=== PATIENT | male | born 1970 | race Caucasian/White ===

== ENCOUNTER 2024-10-19 06:33 | Emergency (ER) | payer BC, SELFPAY ==
[2024-10-19 06:34] VITALS: BMI 32.1
[2024-10-19 06:45] VITALS: BP 128/81; PULSE 74; RESP 17; TEMP 36.4; O2SAT 98
--- NOTE | 2024-10-19 06:47 | XR_ITS ---
Examination: CT brain head without contrast. 2-D sagittal coronal reconstructions Date and time of exam:October 19, 2023 0710 hrs. Patient fell down stairs today with injury to the head, head pain CTDI: vol (mGy):56.4 DLP: (mGycm):1193 Technique: Multiple CT axial sections of the brain have been obtained, 5 mm slice thickness. Contrast has not been administered. 2-D sagittal, coronal reconstructions have been obtained Low dose protocols were performed. One or more of the following dose reduction techniques were used; automated exposure control, adjustment of the mA and/or KV according to patient size, use of iterative reconstruction technique. Findings: No significant ventricular enlargement. Intra-axial or extra-axial hemorrhage density is not seen. No mass effect or midline shift Basal cisterns are not remarkable. Fourth ventricle is midline. Cranial vault intact. Significant left paranasal sinus disease Impression: Negative for acute hemorrhage, mass effect or midline shift
--- NOTE | 2024-10-19 06:47 | XR_ITS ---
Examination: CT right hip pelvis, without contrast. 2-D sagittal reconstructions. 2-D coronal reconstructions. 3-D reconstructions. Date and time of exam:October 19, 2024 0712 hrs. Indications: Patient fell today with injury to the right hip, right hip pain CTDI: vol (mGy):8.66 DLP: (mGycm):309 Technique: Multiple 1.25 mm axial sections of the pelvis right hip have been obtained. 2-D sagittal and coronal reconstructions have been obtained. 3-D reconstructions have been obtained. Low dose protocols were performed. One or more of the following dose reduction techniques were used; automated exposure control, adjustment of the mA and/or KV according to patient size, use of iterative reconstruction technique. Findings: Mild osteopenia. Sacral segments intact Iliac bones acetabular regions anterior rami intact No right hip fracture or hip dislocation Left hip intact Normal appendix No pelvic hematoma Urinary bladder intact Hematoma in the gluteus shauna muscle posterior to the right hip measuring 5.4 x 4.0 cm axial image 118 Impression: Soft tissue hematoma posterior to the right hip No acute hip or pelvic fracture
[2024-10-19] MEDS: HYDROcodone/APAP 5/325 TABLET 1 TAB PO (06:53)
--- NOTE | 2024-10-19 08:23 | PD.EDFALL ---
ED Fall Injury RME/HPI General Chief Complaint: Fall Stated Complaint: FELL, RIGHT BUTTOCK/HIP AREA PAIN Time Seen by Provider: 10/19/24 06:39 Arrival date/time: 10/19/24 06:33 54-year-old male presents emergency department complains of pain to the right buttock as well as pain to the back of his head after a ground-level fall today Limitations: no limitations Related Data Previous Rx's ?Medication ?Instructions ?Recorded albuterol sulfate 90 mcg/actuation 2 puff inhalation Q6H PRN 05/18/18 aerosol inhaler (ProAir HFA) shortness of breath or wheezing #8.5 grams benzonatate 100 mg capsule 100 mg PO Q6H PRN cough #30 caps 05/18/18 codeine 10 mg-guaifenesin 100 mg/5 10 ml PO Q6H PRN cough #118 mL 05/18/18 mL oral liquid hydrocodone 5 mg-acetaminophen 325 1 tab PO BID PRN pain #8 tabs 10/19/24 mg tablet Allergies Allergy/AdvReac Type Severity Reaction Status Date / Time aspirin Allergy Verified 10/19/24 06:39 Review of Systems Review of Systems Systems Reviewed: All systems reviewed, normal except as documented Constitutional Constitutional: Reports system reviewed and no additional complaints, except as documented, Denies fever(s) and Reports headache(s) (Small hematoma head) Eyes Eyes: Reports system reviewed and no additional complaints, except as documented and Denies blurry vision ENT Ears, Nose, Mouth, and Throat: Reports system reviewed and no additional complaints, except as documented, Reports headache(s) (Small hematoma head), Denies nasal congestion and Denies nasal discharge Cardiovascular Cardiovascular: Reports system reviewed and no additional complaints, except as documented, Denies chest pain and Denies dyspnea Respiratory Respiratory: Reports system reviewed and no additional complaints, except as documented, Denies chest congestion, Denies cough and Denies dyspnea Gastrointestinal Gastrointestinal: Reports system reviewed and no additional complaints, except as documented and Denies abdominal pain Musculoskeletal Musculoskeletal: Reports system reviewed and no additional complaints, except as documented and Reports other (Pain right buttock and right leg) Integumentary/Breasts Skin/Breast: Reports system reviewed and no additional complaints, except as documented and Denies rash Neurologic Neurologic: Reports system reviewed and no additional complaints, except as documented, Reports as per HPI and Reports headache(s) (Small hematoma head) Past Medical History Past Medical History CARDIAC: Negative Congestive Heart Failure RESPIRATORY: Negative Chronic Obstructive Pulmonary Disease (COPD) GENITOURINARY: Negative Renal Disease ENDOCRINE: Negative Diabetes Mellitus Type 1 or Diabetes Mellitus Type 2 Social History SMOKING STATUS: Never smoker ED Exam General Limitations: Present no limitations General appearance: Present alert and in no apparent distress Expanded Head Exam Head exam physical: Present contusion and hematoma Head image:  1. Small hematoma Eye Eye exam: Present normal appearance, PERRL and EOMI; Absent conjunctival injection ENT ENT exam: Present normal exam, normal oropharynx and mucous membranes moist Neck Neck exam: Present normal inspection, full ROM and trachea midline Chest Chest inspection: Present normal inspection and symmetric chest wall rise Respiratory Respiratory exam: Present normal lung sounds bilaterally; Absent respiratory distress Cardiovascular Cardiovascular exam: Present regular rate, normal rhythm and normal heart sounds Abdominal Exam Abdominal exam: Present soft and normal bowel sounds; Absent distention, tenderness, guarding, rebound or rigidity Extremities Exam Extremities exam: Present normal inspection and full ROM; Absent tenderness or normal capillary refill Back Exam Back exam: Present normal inspection and full ROM Neurological Exam Neurological exam: Present alert, oriented X3, CN II-XII intact, normal gait and reflexes normal; Absent motor sensory deficit Psychiatric Psychiatric exam: Present normal affect and normal mood Skin Skin exam: Present warm, dry, intact and normal color; Absent rash Course Quality Measures none Orders Category Date Time Status CT head/brain wo con Stat Exams 10/19/24 06:[address] hip RT wo con Stat Exams 10/19/24 06:47 Completed HYDROcodone*/APAP 5/325 [[place] 5/325] Med 10/19/24 06:47 Discontinued 1 tab PO X1 ONE Vital Signs Vital signs: Vital Signs Temperature 97.6 F 10/19/24 06:45 Pulse Rate 74 10/19/24 06:45 Respiratory Rate 17 10/19/24 06:45 Blood Pressure 128/81 10/19/24 06:45 Pulse Oximetry (%) 98 10/19/24 06:45 Oxygen Delivery Method Room Air 10/19/24 06:45 O2 saturation 98% room air within normal limits Fall MDM Narrative MDM Narrative:: 54-year-old male presents emergency department complains of pain to the right buttock as well as pain to the back of his head after a ground-level fall today On exam patient well-appearing patient does not appear ill or toxic and in no acute distress On exam patient has small hematoma to the back of his head as well as swelling and pain to the right buttock region Imaging obtained no acute emergent findings noted Patient is given crutches Patient discharged home in no distress to follow-up with primary care doctor in the next 24 to 48 hours and for any worsening symptoms to return to the ER immediately Patient data External records reviewed:: [facility] previous records Clinical information provided by:: patient Social determinants that could affect healthcare access:: none Patient has the following chronic illnesses:: None How is presenting disease/condition affected by chronic disease/condition?: no chronic disease Evaluation data The following diagnostics were reviewed and interpreted by me:: radiology exam(s) Lab and/or radiology exams considered but not ordered:: Radiology obtain Interpretation Summary: Reviewed by me Medications / Prescriptions Medications or Prescriptions considered but not ordered:: Given Medication administrations:: Medication Administration History Discontinued Medications Hydrocodone Bitart/Acetaminophen (Hydrocodone/Apap 5/325 Tablet) 1 tab PO X1 ONE Stop: 10/19/24 06:48 Last Admin: 10/19/24 06:53 Dose: 1 tab Documented By: CVL Given Consultations Consultation(s) initiated? (list below): No Diagnosis Fall Differential Diagnosis: syncope, concussion with loss of consciousness and concussion without loss of consciousness Most likely diagnosis given after review of the tests above:: Closed head injury Admission Indicated Admission indicated?: not indicated Admission Request Was there a request for admission?: No Disposition Plan Disposition Plan: Discharge Discharge Attestation Discharge Attestation: The patient and all family members were given an opportunity to ask questions and understood the discharge instructions. Discharge instructions specifically effects, indications for sooner follow up or return to the emergency department, and the expected course of current diagnosis. Patient condition: Stable Discharge Plan Plan Patient Disposition: HOME (Self Care) Disposition Comment: Stable Prescriptions/Referrals Prescriptions/Med Rec: New hydrocodone-acetaminophen 5-325 mg tablet 1 tab PO BID MDD 10 PRN (Reason: pain) Qty: 8 0RF No Action benzonatate 100 mg capsule 100 mg PO Q6H PRN (Reason: cough) Qty: 30 0RF codeine-guaifenesin 10-100 mg/5 mL liquid 10 ml PO Q6H PRN (Reason: cough) Qty: 118 0RF albuterol sulfate [ProAir HFA] 90 mcg/actuation HFA aerosol inhaler 2 puff INH Q6H PRN (Reason: shortness of breath or wheezing) Qty: 8.5 0RF Referrals: Giovany Myers MD [Primary Care Provider] - 10/20/24 Problem List Clinical Impression: Contusion of right buttock, CHI (closed head injury) Patient/Caregiver Discharge Instructions Education Materials: Back Safety: Bending Additional Instructions: Please follow up with your primary care doctor in the next 24-48hrs for any worsening symptoms return here immediately Print Language: Faroese Stand Alone Forms: Melany Award Info., Work/School Release, Patient Portal Info Letter PA/FRICKERTRON CHECKER Supervising Physician PA/FRICKERTRON CHECKER Supervising Physician: Dr. lozano
== END 2024-10-19 08:42 | disposition home or self-care (01) ==
PROVIDERS: Emergency Provider Emergency Medicine; PCP Internal Medicine
DX: S30.0XXA Contusion of lower back and pelvis, initial encounter (principal); S09.90XA Unspecified injury of head, initial encounter; W18.30XA Fall on same level, unspecified, initial encounter
CPT/HCPCS: 70450; 73700; 99284; A9270